=== PATIENT | male | born 1940 | race Caucasian/White ===

== ENCOUNTER 2016-12-10 12:33 | Inpatient (IN) | payer MEDICARE, BC ==
--- NOTE | ~2016-12-10 | CN ---
Consultation Report [facility] [address] [place]. [address] NAME: BENTLEY PALUMBO : 38 STATUS : ADM IN PAT#: [id number] AGE: 76 ADM/REG DATE : 12/11/16 MR#: [id number] REPORT SERV DATE: 12/15/16 DICTATED BY: JAMES WALTON DATE: 12/15/16 REPORT STATUS : Draft TRANSCRIBED BY: MODL DATE: 12/15/16 CARDIOVASCULAR CONSULTATION DATE OF CONSULTATION: 12/15/2016 HISTORY OF PRESENT ILLNESS: Mr. Palumbo is a 76-year-old patient of my partner, Dr. Mosquera. He has a history of two prior coronary artery bypass operations. The most recent was in 2012 with mitral valve repair for mitral regurgitation and a distant bypass surgery. He has a known ischemic cardiomyopathy with EF approximately 35%. He has a history of COPD and rheumatoid arthritis. He had worsening symptoms of dyspnea and presented to [facility] emergency room for further evaluation. He was found to have a large left pleural effusion and underwent thoracentesis removing approximately 1.2 L of fluid. He was also found to be in atypical atrial flutter with rapid rate upon admission. He is still in atrial flutter, now on very high doses of Cardizem and Toprol-XL 25 mg daily. PAST MEDICAL HISTORY: 1. Coronary artery disease status post two prior coronary artery bypass grafting procedures. Most recent in 2012. 2. Mitral regurgitation status post mitral valve repair. 3. Hypertension. 4. Hypercholesterolemia. 5. Paroxysmal atrial fibrillation. 6. COPD. SOCIAL HISTORY: He is a former smoker. Does not drink alcohol. FAMILY HISTORY: There is a family history of early coronary artery disease. REVIEW OF SYSTEMS: A complete review of systems was obtained, which is negative in detail, except as mentioned above in the HPI. PHYSICAL EXAMINATION: VITAL SIGNS: Blood pressure 110/57, heart rate of 85 and irregular, respiratory rate of 14. GENERAL: Comfortable, in no acute distress. HEENT: Anicteric. No xanthelasma. Lips without cyanosis. NECK: No JVD. Carotids 2+ and symmetric. No carotid bruits. LUNGS: CTA bilaterally. No wheezes or rhonchi. No accessory muscle use. COR: Irregularly irregular. Normal S1 and S2. There is grade 2-3/6 holosystolic murmur, best heard at the left lower sternal border radiating to the apex. ABD: Soft, nontender, nondistended. Normal bowel sounds. No abdominal bruits. EXT: No clubbing, cyanosis, or edema. 2+ and symmetric distal pulses. SKIN: Warm. Dry. No venous stasis changes. MS: No kyphosis. NEURO/PSYCH: Oriented x3. No anxiety or depression. Consultation Report [address] [place]. [address] NAME: BENTLEY PALUMBO : 38 STATUS : ADM IN PAT#: [id number] AGE: 76 ADM/REG DATE : 12/11/16 MR#: [id number] REPORT SERV DATE: 12/15/16 DICTATED BY: JAMES WALTON DATE: 12/15/16 REPORT STATUS : Draft TRANSCRIBED BY: BERNICE DATE: 12/15/16 LABORATORY STUDIES: Potassium of 5.3, creatinine of 1.36, hematocrit of 39. INR of 1.3. EK-lead EKG shows atypical atrial flutter, rate of 85 beats per minute. Nonspecific T- wave abnormalities noted. IMPRESSION: This is a 76-year-old man with an ischemic cardiomyopathy, presenting with new atypical atrial flutter and pleural effusion/worsening dxkes-pa-abiixpr systolic congestive heart failure. After discussion with the patient, I have recommended an echocardiogram to further evaluate his mitral regurgitation murmur. We will plan for an increase in his INR with re-dosing his Coumadin and consider transesophageal echocardiogram and cardioversion in this admission. Hopefully, he can go home on a lower dose of Cardizem perhaps off it altogether and just on Toprol-XL. FELIX/BERNICE James Walton M.D. / [id number] CC: Reginald Henriquez M.D.
--- NOTE | ~2016-12-10 | OP ---
Record Of Operation [facility] [address] [place]. [address] NAME: BENTLEY LOUIS : 38 STATUS : DIS IN PAT#: [id number] AGE: 76 ADM/REG DATE : 12/11/16 MR#: [id number] REPORT SERV DATE: 01/04/17 DICTATED BY: DUANE COMER DATE: 01/04/17 REPORT STATUS : Draft TRANSCRIBED BY: MODL DATE: 01/04/17 DATE OF PROCEDURE: 12/14/2016 TIME: 1500. PROCEDURE: Ultrasound guided left-sided thoracentesis. INDICATION: Moderate to large left-sided effusion. PROCEDURE HIDE BUYER: Duane Comer PA-C. CONSENT: Consent was obtained from the patient prior to the procedure. Diagnostic and therapeutic indications for thoracentesis were discussed as well as risks including life- threatening bleeding, pneumothorax, and even the possible necessity of chest tube placement. Benefits and alternatives were explained at length. Prior to the procedure, imaging studies were reviewed with Dr. Salidvar who agreed with the indication to proceed with thoracentesis. PROCEDURE SUMMARY: A time out was performed verifying correct patient, procedure, site, and positioning. The patient's left chest was prepped and draped in a sterile manner using chlorhexidine scrub after the appropriate level was percussed and confirmed by ultrasound. U/S images were obtained and placed within the chart. 2% lidocaine with epinephrine was then used to anesthetize the region. A finder needle was then used to aspirate serosanguineous fluid. A 10-blade scalpel was then used to make a small incision. The thoracentesis catheter was then threaded into the pleural space without difficulty. The patient had 1.2 L of serosanguineous fluid removed. No immediate complications were noted during the procedure. A post-procedure chest x-ray is pending at the time of this dictation. The fluid will be sent for several studies. ESTIMATED BLOOD LOSS: Minimal. GBS/MODL Duane Comer PA-C / [id number] CC: Michael Santillan MD
--- NOTE | ~2016-12-10 | DS ---
Discharge Summary [facility] [address] [place]. [address] NAME: BENTLEY PALUMBO : 38 STATUS : DIS IN PAT#: [id number] AGE: 76 ADM/REG DATE : 12/11/16 MR#: [id number] REPORT SERV DATE: 12/19/16 DICTATED BY: CRISTELA RAMIREZ DATE: 12/18/16 REPORT STATUS : Draft TRANSCRIBED BY: MODL DATE: 12/18/16 ADMISSION DATE: 12/11/2016 DISCHARGE DATE: 12/18/2016 The patient was admitted to the Hospitalist Service. CONSULTANTS: Cardiology, Dr. James Lang, and Pulmonology, Duane Salomon PA-C. DISCHARGE DIAGNOSES: 1. Acute hypoxemic respiratory failure. 2. Bilateral pleural effusions, transudative. 3. Systolic heart failure, acute on chronic. 4. Atrial fibrillation, status post cardioversion. 5. Chronic obstructive pulmonary disease. 6. Coronary artery disease, status post coronary artery bypass grafting and mitral valve replacement. 7. Rheumatoid arthritis with chronic immunosuppression. PROCEDURES: 1. On 12/14/2016, Mr. Palumbo underwent an ultrasound-guided thoracentesis on the left side. No obvious signs of loculation, 1.2 L of serosanguineous drainage. 2. Pulmonary function test on 12/14/2016 revealed an abnormal study with 51 minute of O2 sats less than 88%, recommended having an outpatient polysomnogram for further clarity. 3. 12/18/2016, transesophageal echocardiogram with cardioversion. IMAGIN. 12/16/2016, carotid blood flow study revealed no significant carotid stenosis with right vertebral exhibiting antegrade flow, left vertebral artery exhibiting resistant flow. 2. Chest x-ray, PA and lateral on 12/16/2016, showed continued bibasilar consolidation with small to moderate bilateral pleural effusions superimposed on COPD lung changes. Findings have not appreciably changed since prior exam status post CABG and heart valve replacement. 3. 12/13/2016, CT of the chest without contrast revealed small to moderate right and moderate left pleural effusions, some partial loculation of the pleural fluid may be present. Also appears to be a partially calcified pleural band involving the basilar right pleural space posteromedially. There is also calcified pleural plaque at the left lung apex. Findings may be due to previous asbestos exposure, fibrocalcific scarring at the right lung apex, severe upper lobe predominant emphysematous changes in the lungs, prominent compressive atelectasis of the lower lobes of both lungs, heavy atherosclerotic calcification of the coronary arteries with evidence of previous CABG, evidence of old granulomatous disease involving the right lung mediastinal right hilar lymph nodes as well as spleen cholelithiasis, probable chronic compression deformities at T5-T7 with previous vertebral augmentation at T8 and L1. 4. Multiple previous chest x-rays. 5. Echocardiogram 12/16/2016 revealed moderately dilated left ventricle with severe global Discharge Summary [address] [address] NAME: BENTLEY PALUMBO : 38 STATUS : DIS IN PAT#: [id number] AGE: 76 ADM/REG DATE : 12/11/16 MR#: [id number] REPORT SERV DATE: 12/19/16 DICTATED BY: CRISTELA RAMIREZ DATE: 12/18/16 REPORT STATUS : Draft TRANSCRIBED BY: MODL DATE: 12/18/16 left ventricular systolic dysfunction and EF of 20%, mild left ventricular diastolic dysfunction, mildly dilated right ventricle with moderately decreased global function, moderate biatrial enlargement, mitral valve status post repair with mild to moderate residual MR. 6. EKG on 12/18/2016 revealed normal sinus rhythm, left atrial enlargement, nonspecific T- wave abnormality, prolonged QT with a QT corrected of 472 milliseconds. This is status post MARIAM cardioversion. LABORATORY STUDIES: 12/14/2016, left pleural fluid was negative for malignancy. DISCHARGE LABORATORY STUDIES: 12/18/2016: Sodium 139, potassium 4.1, chloride 97, CO2 of 35, BUN 34, creatinine 1.11, GFR 63, glucose 88, calcium 8.3. WBC 7.7, hemoglobin 11.4, hematocrit 36.2, and platelets 250,000. INR 1.4. Protime 17.2. BNP prior to admission in the emergency room on 12/10/2016 of 640.5. HISTORY OF PRESENT ILLNESS: For complete history, please refer to H and P by Dr. Reginald Chandler on date of admission. Briefly, Linwood is a 76-year-old man who presented to the emergency room with increasing shortness of breath in the emergency room, found to be in atrial fibrillation with RVR. His ABG showed evidence of hypoxemia and chest x-ray showed evidence of bilateral pleural effusions. He was admitted to the Hospitalist Service for further evaluation and treatment. HOSPITAL COURSE: Mr. Palumbo was admitted to a telemetry bed with initial primary diagnosis of atrial fibrillation with RVR. He was placed on IV Cardizem drip. Mr. Palumbo initial INR was 4.1, therefore, his Coumadin was placed on hold. Initially, he was weaned off the Cardizem drip, however, his rate was not controlled, and he was restarted on the Cardizem drip per protocol on 12/12/2016. On 12/13/2016, he was ordered to have a CTA of the chest, results are as above, and pulmonary was consulted. He was seen in consultation on 12/14/2016 by THIERNO Webber, for pulmonology. He did undergo left ultrasound-guided thoracentesis on that date. On 12/15/2016, he was seen in consultation by Dr. James Lang. Dr. Lang suggested MARIAM and cardioversion prior to Mr. Palumbo' discharge home. Mr. Palumbo had a decrease in blood pressure while on the beta portia, therefore, beta- portia was stopped on 12/15/2016. His Coumadin again was restarted and Dr. Lang was waiting for his INR to increase prior to doing the cardioversion. On 12/16/2016, Mr. Palumbo complained of some shortness of breath. He was on 1 L nasal cannula at rest. His sat was 93%. His heart rate however was in the 120s, and he was in atrial fibrillation awaiting his INR to go up and his cardioversion to occur. Pharmacy was asked to manage his Coumadin dosing. On 12/17/2016, his INR increased to 1.4. Dr. Lang had to convince Mr. Palumbo to stay to have his MARIAM and cardioversion. On the night of 12/17/2016, he was n.p.o. after midnight for the procedure on 12/18/2016. In the morning of 12/18/2016, he was given a dose of Lovenox 1 mg/kg subcu as his INR was still only 1.4 on this date. He did have a successful cardioversion and postprocedure returned to the floor in sinus rhythm with frequent PACs. However, he was stable and denying any shortness of breath at rest and insisting on going home. Again, in the afternoon, he was seen by Dr. Lang who was in agreement that Mr. Palumbo could be discharged home as he was in stable condition. Mr. Palumbo was evaluated for home oxygen and did qualify for home O2 for 24 hours a day. Home oxygen was set up for Mr. Palumbo, so on afternoon of 12/18/2016, he was discharged home in Discharge Summary [address] [address] NAME: BENTLEY PALUMBO : 38 STATUS : DIS IN PAT#: [id number] AGE: 76 ADM/REG DATE : 12/11/16 MR#: [id number] REPORT SERV DATE: 12/19/16 DICTATED BY: CRISTELA RAMIREZ DATE: 12/18/16 REPORT STATUS : Draft TRANSCRIBED BY: BERNICE DATE: 12/18/16 stable condition. His vital signs were stable. His blood pressure was 109/67, heart rate 90, respirations 20, he was afebrile, and his sat on 3 L was 98%. DISCHARGE INSTRUCTIONS: 1. Diet, a 2 g sodium, cardiac diet is recommended. 2. Activity as tolerated. DISCHARGE MEDICATIONS: Are as follows: 1. Vitamin C 500 mg p.o. daily. 2. Aspirin 325 mg p.o. daily. 3. Cardizem CD 240 mg p.o. daily. 4. Lovenox 50 mg subcu b.i.d., prescription provided for six doses. 5. Lasix 40 mg p.o. daily. 6. Methotrexate 12.5 mg p.o. weekly on Wednesday. 7. Milk of magnesia 30 mL p.o. p.r.n. 8. Pravachol 20 mg p.o. daily at bedtime. 9. Spiriva one inhalation daily 18 mcg. 10.Prednisone 2 mg p.o. daily. 11.Vitamin B12 of 100 mcg p.o. daily. 12.Coumadin 5.5 mg p.o. daily at bedtime. 13.Breo Ellipta 200/5 mcg one puff daily. OTHER DISCHARGE INSTRUCTIONS: Includes Mr. Palumbo will follow up with his primary care provider in 7-10 days. He will also follow up with Dr. Mosquera in two to three weeks. He will also follow up at the [facility] on Wednesday afternoon at 03:40 p.m. DONAL/BERNICE CHRIS HernandezP- / [id number] CC: MD James Lo III, M.D. Robert Berglund, M.D.
--- NOTE | ~2016-12-10 | PUL ---
[facility] [address] [place]. [address] NAME: BENTLEY LOUIS : 38 STATUS : ADM IN PAT#: [id number] AGE: 76 ADM/REG DATE : 12/11/16 MR#: [id number] REPORT SERV DATE: 12/15/16 DICTATED BY: DARA RODRIGUEZ DATE: 12/14/16 REPORT STATUS : Draft TRANSCRIBED BY: MODL DATE: 12/14/16 PULMONARY FUNCTION TEST TEST: Overnight pulse oximetry on 2 L nasal cannula, started on room air. TOTAL RECORDING TIME: 6 hours 25 minutes. Mean pulse is 83, lowest pulse 39, mean oxygen saturation 92%. OVERNIGHT PULSE OXIMETRY: 51 minutes with an oxygen saturation less than 88%, 13.5% of the night. INTERPRETATION: This is an abnormal study, the patient was started on oxygen therapy at 2 L at 2 o'clock in the morning, the patient continued to have desaturations. After that, as there is concern of underlying sleep apnea on this test, we recommend having an outpatient polysomnogram for further clarity. TANVI/BERNICE Dara Rodriguez MD / [id number] CC: Danny Huff M.D.
--- NOTE | ~2016-12-10 | OP ---
Record Of Operation [facility] [address] [place]. [address] NAME: BENTLEY PALUMBO : 38 STATUS : ADM IN [facility]#: [id number] AGE: 76 ADM/REG DATE : 12/11/16 MR#: [id number] REPORT SERV DATE: 12/18/16 DICTATED BY: DATE: REPORT STATUS : Draft TRANSCRIBED BY: MODL DATE: 12/18/16 DATE OF PROCEDURE: 12/18/2016 CHIEF COMPLAINT/REASON FOR STUDY: Atrial fibrillation. Written informed consent obtained. Please see chart for documentation. PROCEDURE: With the assistance of my Anesthesia colleague, Mr. Palumbo was sedated for the procedure. The transesophageal probe was placed with one attempt without complications. 1. The aortic valve appeared trileaflet and appeared to open adequately. There was mild aortic valve sclerosis noted. 2. The left ventricular systolic function appeared severely depressed with a visually estimated ejection fraction of 20%. The myocardial thickness and cavity size appeared grossly normal. 3. The mitral valve is consistent with a prior mitral valve repair. Overall, the leaflets open normally. There appeared to be [id number] posteriorly perivalvular regurgitation. The tricuspid valve appeared to open normally with trivial tricuspid regurgitation. 4. The left atrium was dilated in size. There appeared to be a prior left atrial ligation with partial flow into the left atrial appendage. There was no evidence of thrombus present. There was no evidence of right atrial thrombus present. The right atrium was dilated. There was no evidence of right atrial thrombus. 5. The right ventricle appeared to have mildly decreased systolic function. 6. There was no evidence of pericardial effusion. Following verification of no thrombus present, cardioversion was performed, 200 joules x1 with return to sinus rhythm. IMPRESSION: Successful MARIAM cardioversion. [facility]/MODL Sammie Santiago M.D. / [id number] CC: Michael Santillan MD
--- NOTE | ~2016-12-10 | CN ---
Consultation Report [facility] [address] [place]. [address] NAME: PETER PALUMBO : 38 STATUS : ADM IN PAT#: [id number] AGE: 76 ADM/REG DATE : 12/11/16 MR#: [id number] REPORT SERV DATE: 12/14/16 DICTATED BY: DUANE COMER DATE: 12/14/16 REPORT STATUS : Draft TRANSCRIBED BY: MODL DATE: 12/14/16 CONSULTATION NOTE DATE OF CONSULTATION: 12/14/2016 CHIEF COMPLAINT: Dyspnea in a patient with bilateral pleural effusions. HISTORY OF PRESENT ILLNESS: Mr. Peter Palumbo is a very pleasant 76-year-old white male with a past medical history significant for COPD, dysrhythmias, and coronary artery disease, status post CABG, who presents to [facility] with complaints of worsening shortness of breath. It should be noted that Mr. Palumbo has not been hospitalized recently and has done quite well as an outpatient given his underlying pulmonary disease as well as advanced age. Mr. Palumbo is followed by Dr. Talia Paula in our outpatient clinic. He is on a pulmonary regimen of Spiriva. He is intolerant to short-acting bronchodilators due to increased heart rate. He is not currently on supplemental oxygen. He largely denies symptomatology related to obstructive sleep apnea. The patient quit smoking approximately eleven years ago, prior to this time, he smoked approximately one pack a day for a period of fifty years. He describes his exercise tolerance as normally being quite good. Mr. Palumbo has recently been involved with moving into a new home. In trying to do so, he noticed that he was becoming more short of breath. This continued over the next two or three days and eventually culminated in his presentation to [facility]'s Emergency Room. Upon arrival, he was found to be normotensive. His heart rate was 138 and noted to be in atrial flutter with some degree of ventricular response. His oxygenation was only 81% on room air. Initial blood work revealed a white blood cell count of 5.7. His BNP was elevated at 640. His creatinine was 1.41. A chest x-ray was eventually obtained, which revealed surgical changes from his previous CABG as well as cardiomegaly and some vascular prominence. Effusions were appreciated as well. The patient was placed on rate-controlling medications and has been given some diuretics. Followup chest x-rays have demonstrated bilateral effusions, left greater than right. He eventually underwent a CT scan of the chest, which confirmed the findings of bilateral effusions. There is a question of some degree of loculation and as such he has been referred to the Pulmonary Service for further assessment. Currently, the patient's main pulmonary complaint is shortness of breath. This is worse on exertion and relieved by rest. He is on 4 L to 6 L of oxygen depending on what he is trying to do at any given point. He denies any overt wheezing in his chest. He is not coughing up any purulent sputum. He has had no recent episodes of hemoptysis. He denies recurrent exacerbations of COPD or recurrent pneumonias. The patient does have known coronary artery disease, and has undergone bypass surgery on two separate occasions. He does have dysrhythmias, for which he is on anticoagulation for. He currently denies any murmurs, angina, or palpitations. Consultation Report [address] [place]. [address] NAME: PETER PALUMBO : 38 STATUS : ADM IN [facility]#: [id number] AGE: 76 ADM/REG DATE : 12/11/16 MR#: [id number] REPORT SERV DATE: 12/14/16 DICTATED BY: DUANE COMER DATE: 12/14/16 REPORT STATUS : Draft TRANSCRIBED BY: BERNICE DATE: 12/14/16 The patient does have manifestation of rheumatoid arthritis in his hands, which is worse in the mornings. He does take methotrexate and prednisone chronically for this condition. He currently denies any fever, chills, nausea, vomiting, chest pain, abdominal pain, or edema. PAST MEDICAL HISTORY: 1. Congestive heart failure. 2. Rheumatoid arthritis. 3. Dyslipidemia. 4. COPD. 5. Atrial fibrillation. 6. Coronary artery disease. PAST SURGICAL HISTORY: 1. Coronary artery bypass graft surgery on two separate occasions. 2. Bilateral hernia repair. FAMILY HISTORY: The patient denies a family history of lung disease. SOCIAL HISTORY: The patient is to his of over fifty years. They have three children, who are in good health. 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 He denies any known exposures to dust, silica, or asbestos. TOBACCO/ALCOHOL: As previously mentioned, the patient quit smoking approximately eleven years ago, prior to this time, he smoked approximately one pack a day for a period of fifty years. He denies any recent alcohol or illicit drug use. MEDICATIONS: Aspirin 81 mg, furosemide 20 mg, methotrexate 2.5 mg, pravastatin 20 mg, prednisone 1 mg, Spiriva, warfarin. ALLERGIES: THE PATIENT HAS ADVERSE REACTION TO OMNICEF. REVIEW OF SYSTEMS: A complete review of systems was performed with pertinent positives and negatives contained within the body of the HPI. PHYSICAL EXAMINATION: VITAL SIGNS: Blood pressure is 115/69, heart rate is 83, T-max is 97.3, respiratory rate is 17, SpO2 is 95% on 4 L nasal cannula. GENERAL: The patient is a pleasant, well-nourished/well-developed male, who is not currently exhibiting any signs of acute distress. Skin: Skin with appropriate texture and turgor. No rashes, lesions, or ulcers. Nails are clear without cyanosis or clubbing. HEENT: Head: Skull is normocephalic/atraumatic. Facies symmetric. No masses or lesions. Eyes: Sclera anicteric, conjunctiva pink without exudates. Extra ocular movements intact. Consultation Report [place] [id number] [facility] [place]. [address] NAME: PETER PALUMBO : 38 STATUS : ADM IN [facility]#: [id number] AGE: 76 ADM/REG DATE : 12/11/16 MR#: [id number] REPORT SERV DATE: 12/14/16 DICTATED BY: DUANE COMER DATE: 12/14/16 REPORT STATUS : Draft TRANSCRIBED BY: BERNICE DATE: 12/14/16 Pupils are equal, round, reactive to light. Ears: Auricles and tragus without pain to palpation. Hearing is grossly intact. Nose: Bilateral nasal patency. Sinuses without tenderness upon palpation. Throat: Dentition. Lips, oral mucosa, tongue, palate, and pharynx pink and moist without lesions. Uvula rises equally on phonation. Tongue midline without deviation. NECK: Neck supple. Trachea midline. No cervical lymphadenopathy appreciated. THORAX/LUNGS: Diminished breath sounds in the posterior lung lucero. Dullness to percussion on the left. CARDIOVASCULAR: Regular rate and rhythm. No murmurs, rubs, or gallops. Anterior chest without thrills, heaves, or lifts. ABDOMEN: Soft. Non-distended, non-tender. Active bowel sounds in all four quadrants. No hepatosplenomegaly noted. PERIPHERAL VASCULAR: No edema. No varicosities, stasis changes, open sores, ulcerations, or phlebitis. 2+ pulses in radial and dorsalis pedis. MUSCULOSKELETAL: Full AROM and PROM in all joints. No evidence of erythema, deformity, or crepitus. NEUROLOGIC: CN II - XII grossly intact. Good muscle bulk and tone bilaterally. Strength 5/5 throughout. PSYCHIATRIC: The patient demonstrates good judgment and insight. Pt is A&O x 3. ACCESSORY DATA: Reveals a white blood cell count of 9800, hemoglobin and hematocrit are 12.6 and 39.4, platelets are 282. PT/INR is 17.[address] of the chest reveals small to moderate right and moderate left-sided pleural effusion. There may be partial loculation of the pleural fluid, which tracks along the lateral aspects of the major fissures bilaterally. There appeared to be pleural-based calcifications on the basilar hemithorax, which were associated with pleural band, emphysematous changes are noted throughout. IMPRESSION: 1. Acute hypoxemic respiratory failure. 2. Bilateral pleural effusions, left greater than right. 3. Atrial fibrillation/atrial flutter. 4. Mild volume overload with elevated BNP. 5. Chronic obstructive pulmonary disease. 6. Rheumatoid arthritis, on chronic prednisone and methotrexate. 7. Coronary artery disease, status post CABG on two separate occasions. 8. History of asbestos exposure. PLAN: 1. At this time, the patient has been appropriately placed on supplemental oxygen with good saturations. Certainly, we will assess the patient for the need for supplemental oxygen prior to discharge home. 2. In regard to the patient's bilateral pleural effusions, we will plan for both diagnostic and therapeutic thoracentesis today. There is a question of a loculated component and I have discussed the possibility of chest tube placement and lytic therapy if there is difficulty with full re-expansion of the lung. The patient Consultation Report [place] [id number] [place]. [address] NAME: PETER PALUMBO : 38 STATUS : ADM IN [facility]#: [id number] AGE: 76 ADM/REG DATE : 12/11/16 MR#: [id number] REPORT SERV DATE: 12/14/16 DICTATED BY: DUANE COMER DATE: 12/14/16 REPORT STATUS : Draft TRANSCRIBED BY: MODGlenda DATE: 12/14/16 understands risks, benefits, and wishes to move forward at this time. The fluid will be sent for the appropriate studies. 3. In regard to the patient's atrial fibrillation and atrial flutter, he is now rate controlled. 4. In regard to the patient's volume overload, he has had some increased dosage in his diuretics. We will certainly follow with further recommendations and watch his blood pressure and creatinine accordingly. 5. In regard to the patient's COPD, he does not show obvious signs of exacerbation. He is on a pulmonary regimen currently of Spiriva and half dose of short-acting bronchodilators because of his tendency for tachycardia. We will add Dulera to his regimen. 6. The aforementioned impression and plan has been discussed with Dr. Saldivar, who will follow further recommendations. We thank you for this consult and look forward to participating in the care of Peter Palumbo. AKANKSHA/MODL Duane Comer PA-C / [id number] CC: Danny Huff M.D.
--- NOTE | ~2016-12-10 | HP ---
History And Physical [address] [address] NAME: BENTLEY LOUIS : 38 STATUS : ADM Reji PAT#: [id number] AGE: 76 ADM/REG DATE : 12/10/16 MR#: [id number] REPORT SERV DATE: 12/10/16 DICTATED BY: RAHUL JOSHI DATE: 12/10/16 REPORT STATUS : Draft TRANSCRIBED BY: MODL DATE: 12/10/16 DATE OF ADMISSION: 12/10/2016 EXAMINING PHYSICIAN: Rahul Joshi M.D. REASON FOR ADMISSION: Atrial fibrillation with rapid ventricular response. HISTORY OF PRESENT ILLNESS: This is a 76-year-old white male, who developed increasing shortness of breath earlier today. He does have longstanding history of COPD and is followed by Dr. Talia Paula for this. He presented to the emergency room with atrial fibrillation with rapid ventricular response of 130. He was started on IV Cardizem, heart rate is now down to 99. He had an arterial blood gas which showed evidence for hypoxemia. He has had increasing swelling in his ankles and increasing shortness of breath. Chest x- ray shows evidence of bilateral pleural effusions. He did not initially want to stay in the hospital because he is closing on a house and moving back to the town of [facility]. Dr. Mosquera had been his track mechanic in the past and he agreed to stay overnight to be converted over to oral rate-controlling drugs. He is on no rate-controlling drugs at present. His shortness of breath and orthopnea and swelling in the ankles are all new. He is usually fairly stable. He monitors his dose of Lasix by the amount of leg cramping he has. PAST MEDICAL HISTORY: He has not been hospitalized recently. He does maintain several specialists and uses physicians at [facility] with Dr. James Valladares for most of his primary care. Dr. Pablo Mosquera is his track mechanic, Dr. Talia Paula is his lung doctor, Dr. Milian follows him for rheumatoid arthritis, and Dr. Mcpherson is his urologist. HOME MEDICATIONS: Include the following: Warfarin 4.5 mg on Wednesday, , and Wednesday and 4 mg on other days. He is on vitamin C 500 mg p.o. daily, aspirin 81 mg p.o. daily, vitamin B12 at 100 mcg p.o. daily, furosemide 20 mg p.o. daily, methotrexate 12.5 mg p.o. Wednesday, pravastatin 20 mg p.o. daily, prednisone 2 mg p.o. daily, and Spiriva one puff daily. ALLERGIES: CEFDINIR, CAUSES NOSEBLEEDING. SOCIAL HISTORY: He is for 55 years, lives with his in the [facility]. He quit smoking cigarettes nine years ago. 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 He attends [employer]. He is moving to [place] within city limits. FAMILY HISTORY: He has three children, who are alive and well. Only his daughter lives in the area. His mother and father are both . He grew up in [place], [place], and has lived in all areas of [facility]. History And Physical [address] [address] NAME: BENTLEY LOUIS : 38 STATUS : ADM Reji PAT#: [id number] AGE: 76 ADM/REG DATE : 12/10/16 MR#: [id number] REPORT SERV DATE: 12/10/16 DICTATED BY: RAHUL JOSHI DATE: 12/10/16 REPORT STATUS : Draft TRANSCRIBED BY: BERNICE DATE: 12/10/16 REVIEW OF SYSTEMS: He has mostly shortness of breath. Once he gets up and walks, slight swelling of the legs is new. He has had no fever, chills, night sweats, melena, or hematemesis. No chest pain. He did have a CABG done in [address] Daniel Monteiro. He has had no fever, chills, night sweats, melena, hematemesis, nausea, vomiting, or diarrhea. No cough, no fits, seizures, or convulsions. The remainder of the review of systems is negative. PHYSICAL EXAMINATION: GENERAL: Elderly white male, in no acute distress. The patient has thin body stature with slightly kyphotic posture. VITAL SIGNS: Blood pressure was 147/70, heart rate of 100, respiratory rate 18, afebrile. HEENT: EOMI. Sclerae clear. Conjunctivae pink. NECK: No bruit without any JVD. CHEST: Decreased breath sounds throughout with dullness to percussion only at the extreme lower bases. HEART: Irregularly irregular. ABDOMEN: Soft, nontender. Bowel sounds positive. No masses felt. EXTREMITIES: Have trace edema from the knee to 2+ at the ankle with no distal pulses palpable. NEUROLOGIC: He withdraws to plantar stimulation. Customer Experience Manager is symmetric bilaterally. Coordination is intact. No tremor. He is symmetric and equal neurologically bilaterally. His rkrfyn-so-xmyd is intact. He is alert and oriented. His speech is cogent and goal- directed. SKIN: Without rash, ecchymosis, or bruising. LABORATORY DATA: Chest x-ray shows evidence of bilateral pleural effusions with edema and atelectasis on top of COPD with multiple thoracic compression fractures, two of which have been treated with bone cement, compared to 2013. Arterial blood gas, 7.42/38/53 on room air. Hemoglobin was 12.3, hematocrit 39.7, white count 5.7, platelets 263,000. The portable chest x-ray done as well confirms the PA and lateral. Sodium 142, potassium 4.1, carbon dioxide 30, creatinine 1.41 with a BUN of 40. Glucose is 104. Troponin 0.04. Magnesium 2. TSH is 1.56. The BNP was 640.5. ASSESSMENT: 1. Pulmonary edema secondary to congestive heart failure. 2. Atrial fibrillation with rapid ventricular response, causing #1. 3. Atherosclerotic cardiovascular disease, status post coronary artery bypass grafting [place] [address] Daniel Monteiro. 4. Chronic obstructive pulmonary disease. 5. Rheumatoid arthritis. 6. Chronic kidney disease, stage 2. PLAN: IV Lasix, convert to p.o. Lasix, convert to p.o. Cardizem from the IV and see if controlled rate can be maintained. IV Lasix x2 doses and convert to p.o. Cardizem and History And Physical [address] [address] NAME: BENTLEY LOUIS : 38 STATUS : ADM Reji PAT#: [id number] AGE: 76 ADM/REG DATE : 12/10/16 MR#: [id number] REPORT SERV DATE: 12/10/16 DICTATED BY: RAHUL JOSHI DATE: 12/10/16 REPORT STATUS : Draft TRANSCRIBED BY: MODL DATE: 12/10/16 recheck the BMP in the morning to see if the creatinine is rising. DB/MODL Rahul Joshi M.D. / [id number] CC: Varghese Gregorio M.D. Paul Henson III, M.D. Pamela Sud, M.D. Suzan E House, M.D.
[2016-12-10 12:03] LABS: BASOPHILS 0.2 %; BASOPHILS ABSOLUTE 0.01 10/3/uL (0.0-0.16); EOSINOPHILS 0.4 %; EOSINOPHILS ABSOLUTE 0.02 10/3/uL (0.0-0.53); ER CBC TAT 0 Hrs 12 Mins; HEMATOCRIT 39.7 % (40.0-51.0); HEMOGLOBIN 12.3 g/dL (13.6-17.8); IMMATURE GRANULOCYTES 0.2 %; IMMATURE GRANULOCYTES ABSOLUTE 0.01 10/3/uL (0.0-0.11); LYMPHOCYTES 11.6 %; LYMPHOCYTES ABSOLUTE 0.66 10/3/uL (0.67-4.30); MANUAL DIFF NO %; MEAN CORPUSCULAR HEMOGLOB 28.4 pg (26.0-34.0); MEAN CORPUSCULAR VOLUME 91.7 fL (80-100); MEAN PLATELET VOLUME 9.5 fL (9.2-13.0); MONOCYTES 4.8 %; MONOCYTES ABSOLUTE 0.27 10/3/uL (0.21-1.20); NEUTROPHILS 82.8 %; NEUTROPHILS ABSOLUTE 4.71 10/3/uL (2.02-8.40); PLATELET COUNT 263 10/3/uL (150-400); RBC DISTRIBUTION WIDTH 18.8 % (12.0-16.0); RED CELL COUNT 4.33 10/6/uL (4.7-6.1); WHITE BLOOD CELLS 5.7 10/3/uL (4.5-10.5)
[2016-12-10 12:21] LABS: BUN (BLOOD UREA NITROGEN) 40 MG/DL (6-23); CALCIUM, SERUM 8.9 MG/DL (8.5-10.4); CHEST PAIN PROFILE TAT 0 Hrs 30 Mins; CHLORIDE, SERUM 105 MMOL/L (96-112); CO2 (CARBON DIOXIDE) 30 MMOL/L (24-34); CREATININE 1.41 MG/DL (0.70-1.30); GFR AFRICAN AMERICAN 55 ML/MIN (>=60); GFR NON AFRICAN AMERICAN 47 ML/MIN (>=60); GLUCOSE, SERUM 104 MG/DL (60-99); POTASSIUM, SERUM 4.1 MMOL/L (3.5-5.3); SODIUM, SERUM 142 MMOL/L (135-148); TROPONIN I 0.04 NG/ML (<0.05)
[~2016-12-10 12:33] MED LIST: ALTA2.5 PO; ASAB PO; C5 PO; CARDCD180 PO; CORDARONE PO; COSAMIN DS1 TAB PO; COUMADIN4 MG PO; FLOMAX4 PO; FOLIC ACID400 MC1 PO; FOLIC PO; GLUCCHONDR PO; JANTOVEN4 MG PO; KDUR10 PO; KLOR-CON M2020 MEQ PO; L20 PO; L40 PO; LAN25 PO; MAGOX4 PO; MTX2.5 PO; OS500+D PO; P1 PO; PCET PO; PRAVAC PO; SPIRIVA INH; TOPXL25 PO; ULTRAM50 PO
[2016-12-10] MEDS ORDERED: JANTOVEN4 MG PO (12:59)
[2016-12-10] MEDS ORDERED: ASA5GR PO (13:00)
[2016-12-10] MEDS ORDERED: P1 PO (13:00)
[2016-12-10] MEDS ORDERED: JANTOVEN1 MG PO (13:00)
[2016-12-10] MEDS ORDERED: MTX2.5 PO (13:00)
[2016-12-10] MEDS ORDERED: VITC500 PO (13:01)
[2016-12-10] MEDS ORDERED: L20 PO (13:01)
[2016-12-10] MEDS ORDERED: B12100T PO (13:02)
[2016-12-10] MEDS ORDERED: SPIRIVA INH (13:02)
[2016-12-10 13:07] LABS: INTERNATIONAL NORMAL RATI 4.1 UNITS (-); PARTIAL THROMBO TIME 37.9 SEC (22.5-37.2)
[2016-12-10 13:09] LABS: PROTIME (NOT ORD) 39.1 SEC (12.0-14.5)
[2016-12-10] MEDS ORDERED: PRAVAC PO (13:11)
[2016-12-10 13:25] LABS: INSTRUMENT SERIAL # 8087
[2016-12-10 13:26] LABS: ALLENS TEST Pos; BE (BASE EXCESS) -0.1 MEQ/L (0 +/- 2.5); CARBOXYHEMOGLOBIN 1.7 % (0-3); HCO3 (ACTUAL BICARBONATE) 24.2 MEQ/L (23-27); HEMOBLOGIN CONTENT 13.1 G/DL (14-18); METHEMOGLOBIN 0.3 % (0-3); O2 CONTENT 15.6 VOL% (18-24); PCO2 (CO2 TENSION) 38 MMHG (35-45); PO2 (O2 TENSION) 53 MMHG (79-93); SAMPLE Arterial; pH 7.42 (7.37-7.43)
[2016-12-11 04:50] LABS: BUN (BLOOD UREA NITROGEN) 38 MG/DL (6-23); CALCIUM, SERUM 8.5 MG/DL (8.5-10.4); CHLORIDE, SERUM 104 MMOL/L (96-112); CO2 (CARBON DIOXIDE) 28 MMOL/L (24-34); CREATININE 1.38 MG/DL (0.70-1.30); GFR AFRICAN AMERICAN 56 ML/MIN (>=60); GFR NON AFRICAN AMERICAN 49 ML/MIN (>=60); POTASSIUM, SERUM 4.2 MMOL/L (3.5-5.3); SODIUM, SERUM 142 MMOL/L (135-148)
[2016-12-11 04:58] LABS: INTERNATIONAL NORMAL RATI 3.7 UNITS (-); PROTIME (NOT ORD) 36.1 SEC (12.0-14.5)
[2016-12-11 05:00] LABS: GLUCOSE, SERUM 133 MG/DL (60-99)
[2016-12-11 05:11] LABS: BASOPHILS 0.1 %; BASOPHILS ABSOLUTE 0.01 10/3/uL (0.0-0.16); EOSINOPHILS 0 %; HEMOGLOBIN 12.4 g/dL (13.6-17.8); IMMATURE GRANULOCYTES 0.3 %; IMMATURE GRANULOCYTES ABSOLUTE 0.02 10/3/uL (0.0-0.11); LYMPHOCYTES 3.5 %; LYMPHOCYTES ABSOLUTE 0.25 10/3/uL (0.67-4.30); MEAN CORPUSCULAR VOLUME 93.7 fL (80-100); MEAN PLATELET VOLUME 9.5 fL (9.2-13.0); MONOCYTES 1.9 %; MONOCYTES ABSOLUTE 0.14 10/3/uL (0.21-1.20); NEUTROPHILS 94.2 %; NEUTROPHILS ABSOLUTE 6.76 10/3/uL (2.02-8.40); PLATELET COUNT 267 10/3/uL (150-400); RBC DISTRIBUTION WIDTH 18.8 % (12.0-16.0); RED CELL COUNT 4.27 10/6/uL (4.7-6.1); WHITE BLOOD CELLS 7.2 10/3/uL (4.5-10.5)
[2016-12-11 05:17] LABS: MANUAL DIFF NO %
[2016-12-12 05:07] LABS: INTERNATIONAL NORMAL RATI 2.9 UNITS (-); PROTIME (NOT ORD) 30.1 SEC (12.0-14.5)
[2016-12-12 05:15] LABS: BUN (BLOOD UREA NITROGEN) 40 MG/DL (6-23); CALCIUM, SERUM 8.7 MG/DL (8.5-10.4); CHLORIDE, SERUM 102 MMOL/L (96-112); CO2 (CARBON DIOXIDE) 33 MMOL/L (24-34); CREATININE 1.48 MG/DL (0.70-1.30); GFR AFRICAN AMERICAN 52 ML/MIN (>=60); GFR NON AFRICAN AMERICAN 45 ML/MIN (>=60); GLUCOSE, SERUM 108 MG/DL (60-99); POTASSIUM, SERUM 4.5 MMOL/L (3.5-5.3); SODIUM, SERUM 141 MMOL/L (135-148)
[2016-12-13 06:52] LABS: BASOPHILS 0 %; EOSINOPHILS 0.3 %; EOSINOPHILS ABSOLUTE 0.03 10/3/uL (0.0-0.53); HEMATOCRIT 39.1 % (40.0-51.0); HEMOGLOBIN 12.3 g/dL (13.6-17.8); IMMATURE GRANULOCYTES 0.3 %; IMMATURE GRANULOCYTES ABSOLUTE 0.03 10/3/uL (0.0-0.11); LYMPHOCYTES ABSOLUTE 0.48 10/3/uL (0.67-4.30); MEAN CORPUS HGB CONC 31.5 g/dL (32.0-36.0); MEAN CORPUSCULAR HEMOGLOB 29.3 pg (26.0-34.0); MEAN CORPUSCULAR VOLUME 93.1 fL (80-100); MEAN PLATELET VOLUME 9.2 fL (9.2-13.0); MONOCYTES 8.5 %; MONOCYTES ABSOLUTE 0.82 10/3/uL (0.21-1.20); NEUTROPHILS 85.9 %; NEUTROPHILS ABSOLUTE 8.32 10/3/uL (2.02-8.40); PLATELET COUNT 290 10/3/uL (150-400); RBC DISTRIBUTION WIDTH 18.2 % (12.0-16.0); WHITE BLOOD CELLS 9.7 10/3/uL (4.5-10.5)
[2016-12-13 06:53] LABS: MANUAL DIFF NO %
[2016-12-13 06:58] LABS: INTERNATIONAL NORMAL RATI 1.7 UNITS (-)
[2016-12-13 07:05] LABS: BUN (BLOOD UREA NITROGEN) 40 MG/DL (6-23); CALCIUM, SERUM 8.5 MG/DL (8.5-10.4); CHLORIDE, SERUM 101 MMOL/L (96-112); CO2 (CARBON DIOXIDE) 29 MMOL/L (24-34); CREATININE 1.19 MG/DL (0.70-1.30); GFR AFRICAN AMERICAN 67 ML/MIN (>=60); GFR NON AFRICAN AMERICAN 58 ML/MIN (>=60); GLUCOSE, SERUM 103 MG/DL (60-99); POTASSIUM, SERUM 4.2 MMOL/L (3.5-5.3); SODIUM, SERUM 137 MMOL/L (135-148)
[2016-12-13 10:11] LABS: SED RATE 7 MM/HR (0-15)
[2016-12-14 05:54] LABS: BASOPHILS 0.1 %; BASOPHILS ABSOLUTE 0.01 10/3/uL (0.0-0.16); EOSINOPHILS 0.3 %; EOSINOPHILS ABSOLUTE 0.03 10/3/uL (0.0-0.53); HEMATOCRIT 39.4 % (40.0-51.0); HEMOGLOBIN 12.6 g/dL (13.6-17.8); IMMATURE GRANULOCYTES 0.2 %; IMMATURE GRANULOCYTES ABSOLUTE 0.02 10/3/uL (0.0-0.11); LYMPHOCYTES 5.2 %; LYMPHOCYTES ABSOLUTE 0.51 10/3/uL (0.67-4.30); MEAN CORPUSCULAR HEMOGLOB 29.7 pg (26.0-34.0); MEAN CORPUSCULAR VOLUME 92.9 fL (80-100); MEAN PLATELET VOLUME 9.3 fL (9.2-13.0); MONOCYTES 3.9 %; MONOCYTES ABSOLUTE 0.38 10/3/uL (0.21-1.20); NEUTROPHILS 90.3 %; NEUTROPHILS ABSOLUTE 8.87 10/3/uL (2.02-8.40); PLATELET COUNT 282 10/3/uL (150-400); RBC DISTRIBUTION WIDTH 18.1 % (12.0-16.0); RED CELL COUNT 4.24 10/6/uL (4.7-6.1); WHITE BLOOD CELLS 9.8 10/3/uL (4.5-10.5)
[2016-12-14 05:56] LABS: MANUAL DIFF NO %
[2016-12-14 06:01] LABS: BUN (BLOOD UREA NITROGEN) 40 MG/DL (6-23); CALCIUM, SERUM 8.6 MG/DL (8.5-10.4); CHLORIDE, SERUM 100 MMOL/L (96-112); CO2 (CARBON DIOXIDE) 29 MMOL/L (24-34); CREATININE 1.23 MG/DL (0.70-1.30); GFR AFRICAN AMERICAN 65 ML/MIN (>=60); GFR NON AFRICAN AMERICAN 56 ML/MIN (>=60); GLUCOSE, SERUM 108 MG/DL (60-99); POTASSIUM, SERUM 4.7 MMOL/L (3.5-5.3); SODIUM, SERUM 137 MMOL/L (135-148)
[2016-12-14 06:12] LABS: INTERNATIONAL NORMAL RATI 1.4 UNITS (-)
[2016-12-14 11:42] LABS: TOTAL PROTEIN 6.2 G/DL (6.0-8.5)
[2016-12-14 16:15] LABS: BODY FLUID TRIGLYCERIDE 4 MG/DL; GLUCOSE BODY FL (NOT ORD) 109 MG/DL; LDH BODY FLUID (NOT ORD) 70 U/L; PROTEIN BODY FLUID 1.2 G/DL
[2016-12-14 16:38] LABS: BF TOTAL CELL CT (NOT ORD 342 /MM3; BODY FLUID RBC (NOT ORD) 9054 /MM3
[2016-12-14 16:54] LABS: BD FL LYMPH (NOT ORD) 21 %; BF BASO (NOT OF) 0 %; BF LARGE MONONUCLEAR 65 %; BODY FLUID EOS (NOT ORD) 0 %; BODY FLUID SEG (NOT ORD) 14 %
[2016-12-14 16:55] LABS: BD FL SOURCE (NOT ORD) PLEURAL
[2016-12-14 19:34] LABS: BD FL SOURCE (NOT ORD) LEFT PLEURAL
[2016-12-15 06:23] LABS: BASOPHILS 0.1 %; BASOPHILS ABSOLUTE 0.01 10/3/uL (0.0-0.16); EOSINOPHILS 0.9 %; EOSINOPHILS ABSOLUTE 0.08 10/3/uL (0.0-0.53); HEMATOCRIT 39.4 % (40.0-51.0); HEMOGLOBIN 12.4 g/dL (13.6-17.8); IMMATURE GRANULOCYTES 0.2 %; IMMATURE GRANULOCYTES ABSOLUTE 0.02 10/3/uL (0.0-0.11); LYMPHOCYTES 6.2 %; LYMPHOCYTES ABSOLUTE 0.56 10/3/uL (0.67-4.30); MANUAL DIFF NO %; MEAN CORPUS HGB CONC 31.5 g/dL (32.0-36.0); MEAN CORPUSCULAR HEMOGLOB 29.2 pg (26.0-34.0); MEAN CORPUSCULAR VOLUME 92.7 fL (80-100); MEAN PLATELET VOLUME 9.6 fL (9.2-13.0); MONOCYTES 6.8 %; MONOCYTES ABSOLUTE 0.61 10/3/uL (0.21-1.20); NEUTROPHILS 85.8 %; NEUTROPHILS ABSOLUTE 7.69 10/3/uL (2.02-8.40); PLATELET COUNT 287 10/3/uL (150-400); RED CELL COUNT 4.25 10/6/uL (4.7-6.1)
[2016-12-15 06:30] LABS: INTERNATIONAL NORMAL RATI 1.3 UNITS (-); PROTIME (NOT ORD) 16.5 SEC (12.0-14.5)
[2016-12-15 06:39] LABS: A/G RATIO 0.8 (0.7-1.9); ALBUMIN 2.8 G/DL (3.5-5.0); ALKALINE PHOSPHATASE 58 U/L (45-117); BUN (BLOOD UREA NITROGEN) 45 MG/DL (6-23); CALCIUM, SERUM 8.7 MG/DL (8.5-10.4); CHLORIDE, SERUM 97 MMOL/L (96-112); CO2 (CARBON DIOXIDE) 35 MMOL/L (24-34); CREATININE 1.36 MG/DL (0.70-1.30); GFR AFRICAN AMERICAN 57 ML/MIN (>=60); GFR NON AFRICAN AMERICAN 49 ML/MIN (>=60); GLOBULIN 3.3 G/DL (2.5-4.1); GLUCOSE, SERUM 120 MG/DL (60-99); POTASSIUM, SERUM 5.3 MMOL/L (3.5-5.3); SGOT(AST) 18 U/L (5-40); SGPT(ALT) 26 U/L (5-65); SODIUM, SERUM 137 MMOL/L (135-148); TOTAL BILIRUBIN 2.1 MG/DL (0-1.2); TOTAL PROTEIN 6.1 G/DL (6.0-8.5)
[2016-12-16 05:12] LABS: INTERNATIONAL NORMAL RATI 1.3 UNITS (-)
[2016-12-16 05:35] LABS: BUN (BLOOD UREA NITROGEN) 45 MG/DL (6-23); CALCIUM, SERUM 8.6 MG/DL (8.5-10.4); CHLORIDE, SERUM 95 MMOL/L (96-112); CO2 (CARBON DIOXIDE) 31 MMOL/L (24-34); CREATININE 1.11 MG/DL (0.70-1.30); GFR AFRICAN AMERICAN 73 ML/MIN (>=60); GFR NON AFRICAN AMERICAN 63 ML/MIN (>=60); GLUCOSE, SERUM 101 MG/DL (60-99); POTASSIUM, SERUM 4.6 MMOL/L (3.5-5.3); SODIUM, SERUM 135 MMOL/L (135-148)
[2016-12-17 05:53] LABS: BASOPHILS 0.1 %; BASOPHILS ABSOLUTE 0.01 10/3/uL (0.0-0.16); EOSINOPHILS 2.6 %; HEMATOCRIT 36.2 % (40.0-51.0); HEMOGLOBIN 11.5 g/dL (13.6-17.8); IMMATURE GRANULOCYTES 0.1 %; IMMATURE GRANULOCYTES ABSOLUTE 0.01 10/3/uL (0.0-0.11); LYMPHOCYTES 5.7 %; LYMPHOCYTES ABSOLUTE 0.43 10/3/uL (0.67-4.30); MEAN CORPUS HGB CONC 31.8 g/dL (32.0-36.0); MEAN CORPUSCULAR HEMOGLOB 29.7 pg (26.0-34.0); MEAN CORPUSCULAR VOLUME 93.5 fL (80-100); MEAN PLATELET VOLUME 9.3 fL (9.2-13.0); MONOCYTES 16.8 %; MONOCYTES ABSOLUTE 1.28 10/3/uL (0.21-1.20); NEUTROPHILS 74.7 %; NEUTROPHILS ABSOLUTE 5.67 10/3/uL (2.02-8.40); PLATELET COUNT 257 10/3/uL (150-400); RBC DISTRIBUTION WIDTH 18.2 % (12.0-16.0); RED CELL COUNT 3.87 10/6/uL (4.7-6.1); WHITE BLOOD CELLS 7.6 10/3/uL (4.5-10.5)
[2016-12-17 05:54] LABS: MANUAL DIFF NO %
[2016-12-17 06:01] LABS: INTERNATIONAL NORMAL RATI 1.4 UNITS (-); PROTIME (NOT ORD) 16.9 SEC (12.0-14.5)
[2016-12-17 06:08] LABS: CALCIUM, SERUM 8.3 MG/DL (8.5-10.4); CHLORIDE, SERUM 96 MMOL/L (96-112); CREATININE 1.08 MG/DL (0.70-1.30); GFR AFRICAN AMERICAN 76 ML/MIN (>=60); GFR NON AFRICAN AMERICAN 65 ML/MIN (>=60); GLUCOSE, SERUM 86 MG/DL (60-99); POTASSIUM, SERUM 4.3 MMOL/L (3.5-5.3); SODIUM, SERUM 138 MMOL/L (135-148)
[2016-12-17 06:31] LABS: BUN (BLOOD UREA NITROGEN) 35 MG/DL (6-23); CO2 (CARBON DIOXIDE) 37 MMOL/L (24-34)
[2016-12-17 09:47] LABS: RHEUMATOID FACTOR, BODY FLUID 225 IU/mL (()); SOURCE Pleural Fluid (())
[2016-12-18 06:42] LABS: INTERNATIONAL NORMAL RATI 1.4 UNITS (-); PROTIME (NOT ORD) 17.2 SEC (12.0-14.5)
[2016-12-18 06:44] LABS: BUN (BLOOD UREA NITROGEN) 34 MG/DL (6-23); CALCIUM, SERUM 8.3 MG/DL (8.5-10.4); CHLORIDE, SERUM 97 MMOL/L (96-112); CO2 (CARBON DIOXIDE) 35 MMOL/L (24-34); CREATININE 1.11 MG/DL (0.70-1.30); GFR AFRICAN AMERICAN 73 ML/MIN (>=60); GFR NON AFRICAN AMERICAN 63 ML/MIN (>=60); GLUCOSE, SERUM 88 MG/DL (60-99); POTASSIUM, SERUM 4.1 MMOL/L (3.5-5.3); SODIUM, SERUM 139 MMOL/L (135-148)
[2016-12-18 06:47] LABS: BASOPHILS 0.3 %; BASOPHILS ABSOLUTE 0.02 10/3/uL (0.0-0.16); EOSINOPHILS 2.3 %; EOSINOPHILS ABSOLUTE 0.18 10/3/uL (0.0-0.53); HEMATOCRIT 36.2 % (40.0-51.0); HEMOGLOBIN 11.4 g/dL (13.6-17.8); IMMATURE GRANULOCYTES 0.1 %; IMMATURE GRANULOCYTES ABSOLUTE 0.01 10/3/uL (0.0-0.11); LYMPHOCYTES ABSOLUTE 0.85 10/3/uL (0.67-4.30); MANUAL DIFF NO %; MEAN CORPUS HGB CONC 31.5 g/dL (32.0-36.0); MEAN CORPUSCULAR HEMOGLOB 29.5 pg (26.0-34.0); MEAN CORPUSCULAR VOLUME 93.8 fL (80-100); MEAN PLATELET VOLUME 9.3 fL (9.2-13.0); MONOCYTES 9.4 %; MONOCYTES ABSOLUTE 0.72 10/3/uL (0.21-1.20); NEUTROPHILS 76.9 %; NEUTROPHILS ABSOLUTE 5.92 10/3/uL (2.02-8.40); PLATELET COUNT 250 10/3/uL (150-400); RBC DISTRIBUTION WIDTH 18.3 % (12.0-16.0); RED CELL COUNT 3.86 10/6/uL (4.7-6.1); WHITE BLOOD CELLS 7.7 10/3/uL (4.5-10.5)
[2016-12-18] MEDS ORDERED: BREO ELLIPTA 21 EACH INH (16:47)
[2016-12-18] MEDS ORDERED: LOVENOX60 SC (16:50)
[2016-12-18] MEDS ORDERED: CARDCD240 PO (16:52)
[2016-12-18] MEDS ORDERED: MOMUD PO (16:56)
[2016-12-31] MEDS ORDERED: L40 PO (17:09)
[2016-12-31] MEDS ORDERED: VITC500 PO (17:10)
[2016-12-31] MEDS ORDERED: ASABAYER PO (17:11)
[2016-12-31] MEDS ORDERED: BREO ELLIPTA INH (17:12)
[2016-12-31] MEDS ORDERED: MOMUD PO (17:13)
[2016-12-31] MEDS ORDERED: MTX2.5 PO (17:13)
[2016-12-31] MEDS ORDERED: PRAVAC PO (17:13)
[2016-12-31] MEDS ORDERED: P1 PO (17:14)
[2016-12-31] MEDS ORDERED: SPIRIVA INH (17:14)
[2016-12-31] MEDS ORDERED: C1 PO (17:16)
[2016-12-31] MEDS ORDERED: COUMADIN4 MG PO (17:16)
[2016-12-31] MEDS ORDERED: CYANO1000T PO (17:18)
[2017-01-04] MEDS ORDERED: CORDARONE PO (09:46)
[2017-04-19] MEDS ORDERED: L40 PO (14:33)
[2017-04-19] MEDS ORDERED: PRAVAC PO (14:33)
[2017-04-19] MEDS ORDERED: ADVIL PO (14:33)
[2017-04-19] MEDS ORDERED: JANTOVEN1 MG PO (14:33)
[2017-04-19] MEDS ORDERED: KLOR-CON M1010 MEQ PO (14:33)
[2017-04-19] MEDS ORDERED: MTX2.5 PO (14:34)
[2017-04-19] MEDS ORDERED: P1 PO (14:34)
[2017-04-19] MEDS ORDERED: SPIRIVA INH (14:34)
[2017-04-19] MEDS ORDERED: L20 PO (14:34)
[2017-04-24] MEDS ORDERED: TOPXL25 PO (17:23)
[2017-04-24] MEDS ORDERED: P10 PO (17:24)
[2017-04-24] MEDS ORDERED: ALBUTEROL5 INH (17:28)
[2017-05-03] MEDS ORDERED: PRAVAC PO (15:56)
[2017-05-03] MEDS ORDERED: VITC500 PO (15:56)
[2017-05-03] MEDS ORDERED: JANTOVEN1 MG PO (15:56)
[2017-05-05] MEDS ORDERED: LAN25 PO (10:12)
[2017-05-05] MEDS ORDERED: ATV.5 PO (10:13)
[2017-05-05] MEDS ORDERED: COREG6 PO (10:13)
== END 2016-12-18 17:52 | disposition home or self-care (01) | DRG 308 ==
LOC: ER 12:33 → CDU1 15:49 → 6NO 12-12 16:32
PROVIDERS: Emergency Medicine; Internal Medicine; Internal Medicine Cardiovascular Disease; Nurse Practitioner; Physician Assistant Medical
PROC: 0W9B3ZX Drainage of Left Pleural Cavity, Percutaneous Approach, Diagnostic (ICD-10-PCS; 2016-12-14)
PROC: B246ZZ4 Ultrasonography of Right and Left Heart, Transesophageal (ICD-10-PCS; principal; 2016-12-18)
PROC: 5A2204Z Restoration of Cardiac Rhythm, Single (ICD-10-PCS; 2016-12-18)
DX: I48.2 Chronic atrial fibrillation (principal); J96.01 Acute respiratory failure with hypoxia; I50.23 Acute on chronic systolic (congestive) heart failure; I25.10 Atherosclerotic heart disease of native coronary artery without angina pectoris; J44.9 Chronic obstructive pulmonary disease, unspecified; N18.2 Chronic kidney disease, stage 2 (mild); N40.0 Benign prostatic hyperplasia without lower urinary tract symptoms; M06.9 Rheumatoid arthritis, unspecified; I48.92 Unspecified atrial flutter; I49.1 Atrial premature depolarization; R79.1 Abnormal coagulation profile; Z77.090 Contact with and (suspected) exposure to asbestos; Z95.1 Presence of aortocoronary bypass graft; Z85.038 Personal history of other malignant neoplasm of large intestine; Z79.01 Long term (current) use of anticoagulants; Z95.2 Presence of prosthetic heart valve
CPT/HCPCS: 36600; 71010; 71020; 71035; 71250; 80048; 80053; 82805; 82945; 82962; 83615; 83735; 83880; 83986; 84100; 84155; 84157; 84443; 84478; 84484; 85025; 85610; 85652; 85730; 86431; 87015; 87070; 87102; 87116; 87205; 88112; 88305; 89051; 92960; 93005; 93306; 93312; 93320; 93325; 93880; 94640; 94762; 96374; 96376; 99291; A9270-GY; J8610